=== PATIENT | male | born 1970 | race Two or more races ===

== ENCOUNTER 2016-05-07 20:12 | Emergency (ER) | payer BC, OTHER ==
[~2016-05-07] VITALS: Ht 177.8 cm; Wt 86.3 kg
[2016-05-07 20:27] VITALS: Ht 177.8 cm; Wt 86.3 kg
[2016-05-07] MEDS ORDERED: ALPR0.5T PO (21:27)
--- NOTE | 2016-05-07 21:46 | ERD ---
ER Documentation Chief Complaint Date/Time DATE: 05/07/16 TIME: 21:38 Chief Complaint HAD PANIC ATTACK TODAY, C/O MID ABD PAIN. SEE NURSE NOTES HPI Patient is a 46-year-old male who presents to the emergency department for concerns of "panic attack" today. Patient states that he is worried about his ongoing symptoms. Patient states since one year ago he has been having unusual pain in his left chest below his ribs and bilateral flank regions. 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 Results are pending. Patient states that given that the results have been pending, he is extremely anxious. Patient denies any shortness of breath, diaphoresis, arm pain or jaw pain. Patient states that he is also worried about his urine results. Patient states he saw his primary care physician one month ago and he had a "urine pH of 8.5 and trace blood." Patient states that he found these results worrisome and thinks that he is "having kidney failure." Patient states that he cannot sleep because he is anxious. Patient is able to ambulate without any difficulty. Patient is requesting anxiety medication at this time for his symptoms. ROS All systems reviewed and are negative except as per history of present illness. Medications Home Meds Active Scripts Alprazolam* (Xanax*) 0.5 Mg Tab, 0.5 MG PO Q8H Y for ANXIETY, #3 TAB Prov:KEDAR AGUILAR PA-C 05/07/16 Allergies Allergies: Coded Allergies: No Known Allergy (Unverified , 05/07/16) PMhx/Soc Medical and Surgical Hx: pt denies Surgical Hx Hx Psychiatric Problems: Yes (panic attacks and anxiety) Hx Alcohol Use: No Hx Substance Use: No Hx Tobacco Use: No Smoking Status: Never smoker FmHx Family History: No diabetes Physical Exam Vitals Vital Signs Date Time Temp Pulse Resp B/P Pulse Ox O2 Delivery O2 Flow Rate FiO2 05/08/16 00:03 97.0 74 17 129/85 99 Room Air 05/07/16 20:27 96.8 102 18 132/79 99 Physical Exam GENERAL: Well-developed, well-nourished male. Appears anxious. HEAD: Normocephalic, atraumatic. EYES: Pupils are equally reactive bilaterally. EOMs grossly intact. No conjunctival erythema. ENT: Moist mucous membranes. No uvula deviation. No kissing tonsils. NECK: Supple. No meningismus. Normal range of motion of the neck. LUNG: Clear to auscultation bilaterally. No rhonchi, wheezing, rales or coarse breath sounds. HEART: Regular rate and rhythm. No murmurs, rubs or gallops. Tender to palpation of the bilateral chest carreon. ABDOMEN: No scars, ecchymosis or rashes noted. Soft, nontender, and nondistended. Positive bowel sounds in all four quadrants. No rebound tenderness , no guarding. (-) McBurney's point tenderness. No CVA tenderness bilaterally. BACK: No midline tenderness. EXTREMITIES: Equal pulses bilaterally. No peripheral clubbing, cyanosis or edema. No unilateral leg swelling. NEUROLOGIC: Alert and oriented. Moving all four extremities without any difficulty. Normal speech. Steady gait. SKIN: Normal color. Warm and dry. No rashes or lesions. PSYCH: anxious Result Diagram: 05/07/162109 Results 24 hrs Laboratory Tests Test 05/07/16 21:10 Anion Gap 15 Blood Urea Nitrogen 15mg/dl Calcium Level 9.1mg/dl Carbon Dioxide Level 27mmol/L Chloride Level 105mmol/L Creatinine 1.26mg/dl Glucose Level 108mg/dl Potassium Level 3.5mmol/L Sodium Level 143mmol/L Procedures/MDM ED COURSE: The patient was stable throughout ED course. I kept the patient and/or family informed of laboratory and diagnostic imaging results throughout the ED course. EKG: Read by Dr. Urbina, attending physician. EKG shows normal sinus rhythm at a rate of 75 bpm No arrhythmias, acute ST elevations or T wave changes were noted. DIAGNOSTIC IMAGING: Read by radiologist. DIAGNOSTIC IMAGING REPORT Patient: HARDEEP MONTGOMERY : 1970 Age: 46 Sex: M MR #: [id number] DOS: 05/07/162118 Ordering MD: KEDAR AGUILAR PA-C Location: [facility] Room/Bed: PROCEDURE: XR Chest. CLINICAL INDICATION: Chest pain. TECHNIQUE: Portable AP semi erect view of the chest was obtained. COMPARISON: None. FINDINGS: The cardiomediastinal silhouette is within normal limits. The lungs are clear. There is no evidence for pleural effusion, pneumothorax or pulmonary vascular congestion. The osseous structures are intact with no evidence for acute abnormality. RPTAT:HJJR IMPRESSION: No evidence for acute intrathoracic pathology. Physician Te Date Time Electronically viewed and signed by Geo Galloway Physician on 05/07/2016 22:56 JR/ CC: KEDAR AGUILAR PA-C MEDICAL DECISION MAKING: This is a 46-year-old male who presents with numerous concerns including pain under his left rib, bilateral flank pain. Patient is also concerned that he is having "kidney failure." Patient states he recently underwent a CT angiogram and the results are pending. This is causing him to be extremely anxious. Vital signs were reviewed. Patient was afebrile. Patient was not hypoxic. Cardiac exam was normal. Lung exam was normal. EKG was within normal limits. Low suspicion for acute coronary syndrome, arrhythmia or pericarditis. CXR was within normal limits. Low suspicion for pneumothorax, pneumonia or pleural effusion. Given that patient drove here, I did not give him any medication for anxiety here in the emergency department. Patient will be prescribed 3 tabs of Xanax for his symptoms to take only at home. I advised patient to not operate any machinery or drive any vehicles and taking this medication. Patient's BMP was unremarkable. Given these findings, the patient's presentation is most consistent with rib pain, bilateral flank pain of unknown etiology. Low suspicion of ACS, pericarditis, arrhythmia, pneumothorax, pneumonia, pleural effusion, rib fracture, kidney failure, electrolyte deficiencies. PRESCRIPTIONS: Xanax, 3 tab, no refills DISCHARGE: At this time, patient is stable for discharge and outpatient management. Patient given a copy of all imaging and lab testing today. I have instructed the patient to follow-up with his/her primary care physician in 1-2 days. If symptoms persist, patient may need to see a specialist for further examinations and testing. I have instructed the patient to promptly return to the ER at any time for any new or worsening symptoms including increased increased pain, fever , nausea, vomiting, numbness, weakness, diaphoresis or LOC. The patient and/or family expressed understanding of and agreement with this plan. All questions were answered. Home care instructions were provided. Departure Diagnosis: Primary Impression: Abdominal pain Abdominal location: upper abdomen, unspecified Qualified Code: R10.10 - Pain of upper abdomen Condition: Stable Patient Instructions: Abdominal Pain Additional Instructions: I advised the patient at this time I will prescribe him with a short dose of Xanax. Patient will need to follow-up with his primary care physician Dr. Ko further management of his symptoms. Patient stated KEDAR AGUILAR PA-C May 07, 2016 21:46
[2016-05-07 22:33] LABS: POTASSIUM 3.5 mmol/L (3.5-5.1)
[2016-05-07 22:35] LABS: CREATININE 1.26 mg/dl (0.61-1.24)
[2016-05-07 22:36] LABS: CALCIUM 9.1 mg/dl (8.4-10.2)
--- NOTE | 2016-05-07 22:56 | RADRPT ---
PROCEDURE: XR Chest. CLINICAL INDICATION: Chest pain. TECHNIQUE: Portable AP semi erect view of the chest was obtained. COMPARISON: None. FINDINGS: The cardiomediastinal silhouette is within normal limits. The lungs are clear. There is no evidenc e for pleural effusion, pneumothorax or pulmonary vascular congestion. The osseous structures are i ntact with no evidence for acute abnormality. RPTAT:HJJR IMPRESSION: No evidence for acute intrathoracic pathology. Physician Te Date Time Electronically viewed and signed by Geo Galloway Physician on 05/07/2016 22:56 JR/
[2016-05-08 00:03] VITALS: BP 129/85; PULSE 74; RESP 17; TEMP 97
== END 2016-05-08 00:05 | disposition home or self-care (01) ==
LOC: FTE 20:12
DX: R10.10 Upper abdominal pain, unspecified (principal); R07.9 Chest pain, unspecified
CPT/HCPCS: 71010; 80048; 93005